=== PATIENT | female | born 1960 | race Two or more races ===

== ENCOUNTER 2025-08-28 20:29 | Inpatient (IN) | payer OTHER ==
[~2025-08-28] VITALS: Ht 157.5 cm; Wt 79.5 kg
[2025-08-28 20:58] VITALS: TEMP 97.9
--- NOTE | 2025-08-28 21:00 | ED.PDOC ---
HPI Comments 64-year-old female who came to ER via EMS for chest pains. Patient has a history of hypertension, diabetes, end-stage renal disease on dialysis every Wednesday. Has a history of pancreatic cancer currently on chemotherapy. Status post CABG and ureteral stents. States 3 hours prior to arrival, she developed diffuse chest pains, pressure, constant. Self-medicated with nitroglycerin offering temporary relief. Blood sugar on scene was 329 Chief Complaint: Chest Pain Time Seen by MD: 20:59 Reviewed Notes: Payroll Professional Notes Allergies: Coded Allergies: NO KNOWN ALLERGIES (Unverified , 08/28/25) Information Source: Patient, Emergency Med Personnel Mode of Arrival: EMS Severity: Moderate Timing: Hours Duration: Since onset Prehospital treatment: Accucheck, ASA, NTG Location: Chest (R), Chest (L) Past Medical History PAST MEDICAL HISTORY: Cancer (Pancreatic), DM, ESRD, HTN Surgical History (Other): Chemotherapy, dialysis Wednesday, ureteral stents [employer]PER[employer] History: Denies all [employer]PER[employer]OR Hx Family History Family History: Reviewed,noncontributory to illness Social History Smoker: Non-Smoker Alcohol: Denies ETOH Use Drugs: Denies Drug Use Lives In: Home Constitutional: denies: chills, diaphoresis, fatigue, fever, malaise, sweats, weakness, others EENTM: denies: blurred vision, double vision, ear bleeding, ear discharge, ear drainage, ear pain, ear ringing, eye pain, eye redness, hearing loss, mouth pain, mouth swelling, nasal discharge, nose bleeding, nose congestion, nose pain, photophobia, tearing, throat pain, throat swelling, voice changes, others Respiratory: denies: cough, hemoptysis, orthopnea, SOB at rest, shortness of breath, SOB with excertion, stridor, wheezing, others Cardiovascular: reports: chest pain; denies: dizzy spells, diaphoresis, Dyspnea on exertion, edema, irregular heart beat, left arm pain, lightheadedness, palpitations, PND, syncope, others Gastrointestinal: denies: abdomen distended, abdominal pain, blood streaked bowels, constipated, diarrhea, dysphagia, difficulty swallowing, hematemesis, melena, nausea, poor appetite, poor fluid intake, rectal bleeding, rectal pain, vomiting, others Genitourinary: denies: abnormal vagina bleeding, burning, dyspareunia, dysuria, flank pain, frequency, hematuria, incontinence, pain, , vagina discharge, urgency, others Neurological: denies: dizziness, fainting, headache, left sided numbness, left sided weakness, numbness, paresthesia, pre-existing deficit, right sided numbness, right sided weakness, seizure, speech problems, tingling, tremors, weakness, others Musculoskeletal: denies: back pain, gout, joint pain, joint swelling, muscle pain, muscle stiffness, neck pain, others Integumetry: denies: bruises, change in color, change in hair/nails, dryness, laceration, lesions, lumps, rash, wounds, others Allergic/Immunocompromised: denies: Difficulty Healing, Frequent Infections, Hives, Itching, others Hematologic/Lymphatic: denies: anemia, blood clots, easy bleeding, easy bruising, swollen glands, others Endocrine: denies: excessive hunger, excessive sweating, excessive thirst, excessive urination, flushing, intolerance to cold, intolerance to heat, unexplained weight gain, unexplained weight loss, others Psychiatric: denies: anxiety, bipolar disorder, depression, hopeless, panic disorder, schizophrenia, sleepless, suicidal, others Physical Exam General Appearance: No Apparent Distress, Normal HEENT: Normal ENT Inspection, Pharynx Normal, TMs Normal Neck: Full Range of Motion, Non-Tender, Normal, Normal Inspection Respiratory: Chest Non-Tender, Lungs Clear, No Accessory Muscle Use, No Respiratory Distress, Normal Breath Sounds Cardiovascular: No Edema, No JVD, No Murmur, No Gallop, Normal Peripheral Pulses, Regular Rate/Rhythm Breast Exam: Deferred Gastrointestinal: No Organomegaly, Non Tender, No Pulsatile Mass, Normal Bowel Sounds, Soft Genitalia: Deferred Pelvic: Deferred Rectal: Deferred Extremities: No calf tenderness, Normal capillary refill, Normal inspection, Normal range of motion, Non-tender, No pedal edema Musculoskeletal : Apperance: Normal Neurologic: Alert, junior administrative assistant II-XII nml as Tested, No Motor Deficits, Normal Affect, Normal Mood, No Sensory Deficits Cerebellar Function: Normal Reflexes: Normal Skin: Dry, Normal Color, Warm Lymphatic: No Adenopathy EKG EKG : Pulse Rate (adult): 90 Cardiac Rhythm: NSR Was a procedure done? Was a procedure done?: No CP Differential Dx Differential Diagnosis: Angina, Anxiety / Panic Attack, Electrolyte Disorder, Hypoxia Differential Diagnosis: Angina, Chest Wall Pain, Costochondritis, Esophageal reflux/spasm, Gastritis, Myocardial Infarction X-Ray, Labs, Meds, VS Vital Signs Date Time Temp Pulse Resp B/P (MAP) Pulse Ox O2 Delivery O2 Flow Rate FiO2 08/28/25 23:31 88 18 152/76 (101) 99 08/28/25 23:30 89 08/28/25 21:47 106 18 99 Room Air* 0 21 08/28/25 21:47 90 08/28/25 21:44 90 08/28/25 20:58 97.9 106 18 159/93 (115) 99 97.9 08/28/25 20:34 109 08/28/25 20:33 98.1 114 16 139/85 98 98.1 Lab Test 08/28/25 23:41 08/28/25 22:13 08/28/25 20:56 Range/Units Troponin I High Sensitivity Pending 80 *H 53 *H </=34 ng/L White Blood Count 6.5 4.4-10.8 10^3/uL Red Blood Count 2.74 L 4.0-5.20 10^6/uL Hemoglobin 7.2 L 12.2-16.2 g/dL Hematocrit 22.4 L 36.0-46.0 % Mean Corpuscular Volume 81.9 80.0-100.0 fL Mean Corpuscular Hemoglobin 26.5 L 28.0-32.0 pg Mean Corpuscular Hemoglobin Concent 32.3 32.0-36.0 g/dL Red Cell Distribution Width 19.7 H 11.8-14.3 % Platelet Count 292 140-450 10^3/uL Mean Platelet Volume 7.8 6.9-10.8 fL Neutrophils (%) (Auto) 80.5 H 37.0-80.0 % Lymphocytes (%) (Auto) 11.3 10.0-50.0 % Monocytes (%) (Auto) 5.2 0.0-12.0 % Eosinophils (%) (Auto) 2.0 0.0-7.0 % Basophils (%) (Auto) 1.0 0.0-2.0 % Neutrophils # (Auto) 5.3 1.6-8.6 10 ^3/uL Lymphocytes # (Auto) 0.7 0.4-5.4 10 ^3/uL Monocytes # (Auto) 0.3 0-1.3 10 ^3/uL Eosinophils # (Auto) 0.1 0-0.8 10 ^3/uL Basophils # (Auto) 0.1 0-0.2 10 ^3/uL Nucleated Red Blood Cells 0.0 % Sodium Level 138 136-145 mmol/L Potassium Level 4.3 3.5-5.1 mmol/L Chloride Level 102 98-107 mmol/L Carbon Dioxide Level 22 20-31 mmol/L Anion Gap 14 5-15 Blood Urea Nitrogen 21 9-23 mg/dL Creatinine 4.68 H 0.550-1.02 mg/dL Glomerular Filtration Rate Calc 10 >90 mL/min BUN/Creatinine Ratio 4.5 L 10.0-20.0 Serum Glucose 405 *H 74-106 mg/dL Calcium Level 7.5 L 8.7-10.4 mg/dL Total Bilirubin 0.9 0.2-1.0 mg/dL Aspartate Amino Transferase (AST) 55 H 13-40 U/L Alanine Aminotransferase (ALT) 30 7-40 U/L Alkaline Phosphatase 571 H 46-116 U/L B-Type Natriuretic Peptide 568.92 0-100 pg/mL Total Protein 5.5 L 5.7-8.2 g/dL Albumin 2.8 L 3.2-4.8 g/dL Current Medications Medications (Trade) Dose Ordered Sig/Henrik Route Start Time Stop Time Status Last Admin Insulin Human Regular (InsuLIN R) 5 units ONCE ONCE SC 08/28/25 22:00 08/28/25 22:01 DC 08/28/25 22:10 CHEST RADIOGRAPH Indication: chest pain Technique: Single frontal view of the chest was obtained Comparison: None FINDINGS: Lines and Tubes: Left IJ approach hemodialysis catheter terminating over the mid to distal SVC. Right IJ approach port-A-Cath terminating within the distal right IJ. Lungs: No focal consolidation. Diffuse interstitial prominence. Pleura: No effusion. No pneumothorax. Cardiomediastinal contours: Heart size is within normal limits with mild atherosclerotic calcification and uncoiling of the aorta. Bones: No acute osseous abnormality. Midline sternotomy wires surgical clips are noted consistent with prior history of CABG. IMPRESSION: Right IJ approach port-A-Cath terminating over the distal right IJ. Left IJ approach hemodialysis catheter terminating over the mid to distal SVC. Interstitial prominence bilateral lungs which may represent pulmonary vascular congestion / fibrotic changes with atypical pneumonia not excluded. Time of 1ST Reevaluation: 20:56 Reevaluation 1ST: Unchanged Patient Education/Counseling: Diagnosis, Treatment Family Education/Counseling: No Family Present SEPSIS Sepsis Screen Physician Orders Electrocardigram (08/28/25 20:34) Troponin-I Hs (08/28/25 23:34) Chest Xray 1 View (08/28/25 20:43) Vital Signs Date Time Temp Pulse Resp B/P (MAP) Pulse Ox O2 Delivery O2 Flow Rate FiO2 08/28/25 23:31 88 18 152/76 (101) 99 08/28/25 23:30 89 08/28/25 21:47 106 18 99 Room Air* 0 21 08/28/25 21:47 90 08/28/25 21:44 90 08/28/25 20:58 97.9 106 18 159/93 (115) 99 97.9 08/28/25 20:34 109 08/28/25 20:33 98.1 114 16 139/85 98 98.1 Laboratory Tests Test 08/28/25 20:56 White Blood Count 6.5 10^3/uL (4.4-10.8) Medications Medications Dose Ordered Sig/Henrik Route Start Time Stop Time Status Last Admin Dose Admin Insulin Human Regular 5 units ONCE ONCE SC 08/28/25 22:00 08/28/25 22:01 DC 08/28/25 22:10 Departure 1 Departure Time of Disposition: 00:03 Impression: Primary Impression: Acute coronary syndrome Additional Impressions: Type 2 diabetes mellitus with hyperglycemia Chronic kidney disease with end stage renal failure on dialysis Anemia of chronic disease Pancreatic cancer Disposition: ADMITTED INPATIENT Admit to: Tele Condition: Guarded Comments 64-year-old female with a history of pancreatic cancer receiving chemotherapy, type 2 diabetes and chronic renal failure on dialysis Wednesday now presents with the chest pain. Chest x-ray shows some fluid overload/CHF. On lab review patient is quite anemic with H&H of 7.2 and 22.4. Chronic renal failure with creatinine high at 4.68. Hyperglycemia 405. Troponin elevated at 53 and then became more elevated at 880 on the repeat. BNP is elevated at 569. Patient was given aspirin. Patient will need to be admitted for supportive care and further workup. Critical Care Note Critical Care Time?: Yes (35 min-critical care time only) Critical care comment: Chest pain Stability Stability form required: No Heart Score Heart Score: Heart Score Response (Comments) Value History Moderate Suspicious 1 EKG Repolarization Disturb 1 Age >65 2 Risk Factors >3 or Hx ASHD 2 Troponin 1-2 x's Normal limit 1 Total 7 I personally scribed for DIONNE BEAVER MD ([email or web address]) on 08/28/25 at 21:00. Electronically submitted by Matt Chapman ([email or web address]). I personally scribed for DIONNE BEAVER MD ([email or web address]) on 08/28/25 at 21:47. Electronically submitted by Matt Chapman ([email or web address]). DIONNE BEAVER MD Aug 28, 2025 21:00
--- NOTE | 2025-08-28 21:01 | DVH ---
CHEST RADIOGRAPH Indication: chest pain Technique: Single frontal view of the chest was obtained Comparison: None FINDINGS: Lines and Tubes: Left IJ approach hemodialysis catheter terminating over the mid to distal SVC. Right IJ approach port-A-Cath terminating within the distal right IJ. Lungs: No focal consolidation. Diffuse interstitial prominence. Pleura: No effusion. No pneumothorax. Cardiomediastinal contours: Heart size is within normal limits with mild atherosclerotic calcificatio n and uncoiling of the aorta. Bones: No acute osseous abnormality. Midline sternotomy wires surgical clips are noted consistent wit h prior history of CABG. IMPRESSION: Right IJ approach port-A-Cath terminating over the distal right IJ. Left IJ approach hemodialysis cat heter terminating over the mid to distal SVC. Interstitial prominence bilateral lungs which may represent pulmonary vascular congestion / fibrotic changes with atypical pneumonia not excluded.
[2025-08-28 21:18] LABS: Hematocrit 22.4 % (36.0-46.0); Hemoglobin 7.2 g/dL (12.2-16.2); Mean Corpuscular Hemoglobin 26.5 pg (28.0-32.0); Mean Corpuscular Volume 81.9 fL (80.0-100.0); Nucleated Red Blood Cells % 0.0 %
[2025-08-28 21:43] LABS: Alanine Aminotransferase 30 U/L (7-40); Anion Gap 14 (5-15); BUN/Creatinine Ratio 4.5 (10.0-20.0); Blood Urea Nitrogen 21 mg/dL (9-23); Carbon Dioxide 22 mmol/L (20-31); Chloride 102 mmol/L (98-107); Potassium 4.3 mmol/L (3.5-5.1); Sodium 138 mmol/L (136-145)
[2025-08-28 21:44] LABS: Bilirubin, Total 0.9 mg/dL (0.2-1.0)
[2025-08-28 21:47] VITALS: PULSE 106; RESP 18; O2SAT 99
[2025-08-28 21:49] LABS: Albumin 2.8 g/dL (3.2-4.8); Alkaline Phosphatase 571 U/L (46-116); Calcium 7.5 mg/dL (8.7-10.4); Total Protein 5.5 g/dL (5.7-8.2)
[2025-08-28 21:51] LABS: Glucose 405 mg/dL (74-106)
[2025-08-28] MEDS: InsuLIN REG 1unit/0.01ml Soln (100units/ml) SC ONE (22:10)
[2025-08-29] MEDS ORDERED: ACETAMINOPHEN 325 MG TAB PO PRN (02:30)
[2025-08-29] MEDS ORDERED: NITROGLYCERIN 0.4 MG SL TAB SL PRN (02:30)
[2025-08-29] MEDS ORDERED: ONDANSETRON HCL 4 MG/2 ML VIAL IV PRN (02:30)
[2025-08-29] MEDS ORDERED: MORPHINE SULFATE INJ 2 MG/ml SYRG IV PRN ×2 (02:30)
[2025-08-29] MEDS: DEXTROSE (25%) 10 ML SYRG IV ONE (02:44)
--- NOTE | 2025-08-29 03:27 | DVHHPRES ---
History of Present Illness Resident Creating Document: MARIO GONSALVES History of Present Illness Damari Hamilton this is a 64-year-old female patient who presents to ED with chief of oppressive right shoulder to left shoulder chest pain intensity 10/10 which lasted approximately 1 hour and was relieved after 2nd nitroglycerin, pain started on Wednesday while she was in Functional Class IV, associated with nausea, then presented new episode after EMS arrived, prompting her visit to the ED. patient reports previously documented angina, these symptoms were similar of when she had RI. denies any other associated symptoms, including dyspnea, syncope, palpitation. Patient does not report any obvious bleeding from GI, or other sources. Past medical history: Hypertension, diabetes, coronary artery disease status post CABG with three grafts, 2021 PCI was recently discontinued from dap and placed on apixaban, recent diagnosis of pancreatic cancer in 04/2025 planning on starting chemotherapy, but was delayed due to status post bile duct stent placement on 05/2025 which was later complicated by sepsis with secondary to cholangitis in 07/2025 (admission was in [facility]) requiring hemodialy sis session 3 times a week due to ESRD (Wednesday, Wednesday and Wednesday), normocytic anemia requiring three transfusions in June/2025, DVT on right upper arm. Surgical history: 2020 CABG, 2021 PCI, 05/2025 bile duct stent placement, 07/2025 new bile stent placement, Port-A-Cath, tunneled catheter. Family history: Noncontributory Social history: Lives in [place] alone (next of kin is sister). Denies current tobacco, alcohol and other drug abuse Allergies: Denies Home medication: On apixaban, metoprolol and insulin. In recent admission during sepsis secondary to cholangitis in [facility], atorvastatin, Brilinta, aspirin, Jardiance and metformin were all discontinued. Patient seen and examined at bedside. Currently has no new complaints, chest pain has resolved after nitroglycerin. Patient is kept NPO due to suspected GI bleed and also to evaluate need of invasive treatment at this time. She initially was admitted with hyperglycemia, and currently has hypoglycemia. Questionable sepsis, obtain cultures, but patient currently refuses IV antibiotic due to fear of worsening kidney function. Have explained that her kidney only function with hemodialysis at this point and that sepsis can potentially be fatal, patient understands consequences but still prefers to not receive IV antibiotic. Past Medical History Per HPI Past Surgical History Per HPI Family History Per HPI Past Social History Per HPI Review of Systems Review of Systems Per HPI Allergies: Coded Allergies: NO KNOWN ALLERGIES (Unverified , 08/28/25) Exam Vital Signs Vital Signs Date Time Temp Pulse Resp B/P (MAP) Pulse Ox O2 Delivery O2 Flow Rate FiO2 08/29/25 01:38 76 16 134/68 (90) 96 08/28/25 21:47 Room Air* 0 21 08/28/25 20:58 97.9 97.9 Exam Patient lying in bed, in no acute distress General: Lucid, afebrile, mucosae are moist, pale conjunctivae and skin Cardiovascular: Normal S1 and S2. No murmurs, gallops or rubs. Port-A-Cath entrance in right subclavian area with mild erythema and tunneled catheter in left subclavian area Respiratory: Normal ventilation mechanics. Clear lung sounds on auscultation Abdomen: Soft, nontender, no organomegaly, normal bowel sounds MSK/skin: Mobilizes 4 limbs. Skin is dry and warm. Bilateral lower limb pitting edema right greater than left. Bilateral upper limb swelling, no pain Neurological: Oriented in 3 spheres. No motor no sensitive deficits. Pupils are isocoric and reactive Labs/Xrays Labs Test 08/28/25 23:41 08/28/25 20:56 Range/Units Troponin I High Sensitivity 171 *H </=34 ng/L White Blood Count 6.5 4.4-10.8 10^3/uL Red Blood Count 2.74 L 4.0-5.20 10^6/uL Hemoglobin 7.2 L 12.2-16.2 g/dL Hematocrit 22.4 L 36.0-46.0 % Mean Corpuscular Volume 81.9 80.0-100.0 fL Mean Corpuscular Hemoglobin 26.5 L 28.0-32.0 pg Mean Corpuscular Hemoglobin Concent 32.3 32.0-36.0 g/dL Red Cell Distribution Width 19.7 H 11.8-14.3 % Platelet Count 292 140-450 10^3/uL Mean Platelet Volume 7.8 6.9-10.8 fL Neutrophils (%) (Auto) 80.5 H 37.0-80.0 % Lymphocytes (%) (Auto) 11.3 10.0-50.0 % Monocytes (%) (Auto) 5.2 0.0-12.0 % Eosinophils (%) (Auto) 2.0 0.0-7.0 % Basophils (%) (Auto) 1.0 0.0-2.0 % Neutrophils # (Auto) 5.3 1.6-8.6 10 ^3/uL Lymphocytes # (Auto) 0.7 0.4-5.4 10 ^3/uL Monocytes # (Auto) 0.3 0-1.3 10 ^3/uL Eosinophils # (Auto) 0.1 0-0.8 10 ^3/uL Basophils # (Auto) 0.1 0-0.2 10 ^3/uL Nucleated Red Blood Cells 0.0 % Sodium Level 138 136-145 mmol/L Potassium Level 4.3 3.5-5.1 mmol/L Chloride Level 102 98-107 mmol/L Carbon Dioxide Level 22 20-31 mmol/L Anion Gap 14 5-15 Blood Urea Nitrogen 21 9-23 mg/dL Creatinine 4.68 H 0.550-1.02 mg/dL Glomerular Filtration Rate Calc 10 >90 mL/min BUN/Creatinine Ratio 4.5 L 10.0-20.0 Serum Glucose 405 *H 74-106 mg/dL Calcium Level 7.5 L 8.7-10.4 mg/dL Total Bilirubin 0.9 0.2-1.0 mg/dL Aspartate Amino Transferase (AST) 55 H 13-40 U/L Alanine Aminotransferase (ALT) 30 7-40 U/L Alkaline Phosphatase 571 H 46-116 U/L B-Type Natriuretic Peptide 568.92 0-100 pg/mL Total Protein 5.5 L 5.7-8.2 g/dL Albumin 2.8 L 3.2-4.8 g/dL SEPSIS Sepsis Screen Date sepsis recognized/suspect: Aug 28, 2025 Time Sepsis recognized/suspect: 2032 Recent Procedure: No On Antibiotic Therapy: No Respiratory Rate >20: No Heart Rate >90: Yes Temp<36 C (96.8 F) or >38.3 C: No SBP <90 or MAP <65 mmHG: No New Acute Mental Status Change: No Is the patient on CPAP, BIPAP,: No Physician Orders Electrocardigram (08/28/25 20:34) Chest Xray 1 View (08/28/25 20:43) Admit (08/29/25 02:19) Code Status (08/29/25 02:19) Vital Signs .PER UNIT PROTOCOL (08/29/25 02:19) Review Orders With Adm. (08/29/25 02:19) Npo (Nothing By Mouth) Diet (08/29/25 Breakfast) Acetaminophen Tablet (Tylenol Tablet) (08/29/25 02:30) Notify Md Of Changes From Base (08/29/25 02:19) Advance Directive (08/29/25 02:19) Echo 2d Mode Cardiac Dop (08/29/25 02:19) Patient Condition (08/29/25:) Allergies (08/29/25:) Ondansetron Hcl (Zofran) (08/29/25 02:30) Morphine Sulfate Injection (08/29/25 02:30) Nitroglycerin Sublingual (Ntrostat Subli (08/29/25 02:30) Morphine Sulfate Injection (08/29/25 02:30) Oxygen By Nasal Cannula (08/29/25 02:19) Stat Ekg For Chest Pain (08/29/25 02:19) Notify Md Of Changes From Base (08/29/25 02:19) Home Management Supervisor For 24 Hours (08/29/25 02:19) Emergency Dysrhythmia Protocol (08/29/25 02:19) Rhythm Strips Once Every Shift (08/29/25 02:19) Aspirin Tablet (08/29/25 10:00) Atorvastatin (Lipitor) (08/29/25 22:00) Bilat Lower Dvt (08/29/25 03:22) Bi Lat Upper Dvt (08/29/25 03:22) Vitamin D, 25-Hydroxy (08/29/25 03:22) Thyroid Stimulating Hormone (08/29/25 03:22) Urinalysis (08/29/25 03:22) Vitamin B12 (08/29/25 03:22) PTPTT (08/29/25 03:22) Phosphorus (08/29/25 03:22) Magnesium (08/29/25 03:22) Lipid Panel (08/29/25 03:22) Lipase (08/29/25 03:22) Lactic Acid W/ Reflex Order (08/29/25 03:22) Hemoglobin A1c (08/29/25 03:22) Drug Screen (08/29/25 03:22) Comprehensive Metabolic Panel (08/29/25 03:22) Complete Blood Count (08/29/25 03:22) Blood Culture (08/29/25 03:22) Urine Bacterial Culture (08/29/25 03:22) Respiratory Culture W/ Gs (08/29/25 03:22) Troponin-I Hs (08/29/25 03:26) Vital Signs Date Time Temp Pulse Resp B/P (MAP) Pulse Ox O2 Delivery O2 Flow Rate FiO2 08/29/25 01:38 76 16 134/68 (90) 96 08/28/25 23:31 88 18 152/76 (101) 99 08/28/25 23:30 89 08/28/25 21:47 106 18 99 Room Air* 0 21 08/28/25 21:47 90 08/28/25 21:44 90 08/28/25 20:58 97.9 106 18 159/93 (115) 99 97.9 08/28/25 20:34 109 08/28/25 20:33 98.1 114 16 139/85 98 98.1 Laboratory Tests Test 08/28/25 20:56 White Blood Count 6.5 10^3/uL (4.4-10.8) Medications Medications Dose Ordered Sig/Henrik Route Start Time Stop Time Status Last Admin Dose Admin Insulin Human Regular 5 units ONCE ONCE SC 08/28/25 22:00 08/28/25 22:01 DC 08/28/25 22:10 5 UNITS Assessment/Plan Assessment/Plan NSTEMI probable type 2 Sepsis likely secondary to tunneled hemodialysis catheter Probable GI bleed Bilateral upper extremity DVT Normocytic/microcytic anemia Patient currently on heparin drip due to bilateral upper limb DVT. She has high-risk of bleeding. EKG shows sinus rhythm with no ST elevation, negative T- waves in higher lateral leads. Completed bilateral upper limb extremity ultrasound which showed bilateral DVT in upper limbs. Bilateral lower limbs did not show any DVT Patient has high risk of presenting PE. If deemed necessary, consider angio CT of chest Patient is on pantoprazole drip Ordered stool occult blood in rest of anemia workup Consider consulted Cardiology. She is not a good candidate for stent placement at this time due to pancreatic cancer and high bleeding risk. Highly suspect sepsis due to tachycardia, altered glucose levels and neut rophilia. Currently patient is NPO due to suspected GI bleed and for further evaluation. Ordered pancultures (blood, urine, sputum) Ordered IV antibiotic, but patient refused to receive it because she wants to protect her kidneys. Have explained that her kidneys already dependent on hemodialysis, antibiotic we will be washed out with hemodialysis. Patient refuses and accepts the risk of not getting antibiotics, including . Pancreatic cancer status post bile duct stent placement x2 Patient planning on completing chemotherapy next month. Recently had prolonged hospitalization (approximately one month) due to severe sepsis due to cholangitis. Coronary artery disease status post CABG with three grafts and PCI Patient was on apixaban, currently he is on heparin drip. End-stage renal disease on hemodialysis session 3 times a week Consulted nephrology Hypertension Diabetes Discontinued antihypertensive medication at this time due to probable GI bleed Currently patient is on insulin sliding scale and requires dextrose drip due to persistent hypoglycemia Goals of care discussed with patient for over 18 minutes: Full code status Discussed plan with Dr. Whatley, patient and nurses: Patient is currently on telemetry status, is kept NPO due to probable GI bleed, placed on pantoprazole drip, patient does present stable hemoglobin (7.2 x 2), presents bilateral upper limb DVT, started heparin drip to avoid PE, patient has high bleeding risk. Indicated IV antibiotic, but patient refused to protect her kidney function (educated the patient on her current need of hemodialysis and that antibiotic we will be removed which each session, and that antibiotics can prevent fatalities from for sepsis, patient is still refuses antibiotic takes full responsibility of her actions). Patient has poor prognosis. Patient is unstable for transfer to [place] Plan discussed with: Patient, Other (Nurses) My Orders Orders - MARIO GONSALVES RESIDENT Procedure Category Date Status Time Admit ADMIT 08/29/25 Transmitted 02:19 Code Status CODE 08/29/25 Transmitted 02:19 Vital Signs BENJAMIN 08/29/25 In Process 02:19 Review Orders With BENJAMIN 08/29/25 In Process Adm. 02:19 Npo (Nothing By DIET 08/29/25 Transmitted Mouth) Diet Breakfast Acetaminophen Tablet PHA 08/29/25 In Process (Tylenol Tablet) 02:30 Notify Of Changes BENJAMIN 08/29/25 In Process From Base 02:19 Advance Directive BENJAMIN 08/29/25 In Process 02:19 Echo 2d Mode Cardiac US 08/29/25 Logged DOP 02:19 Patient Condition ORDERS 08/29/25 Transmitted 02:19 Allergies BENJAMIN 08/29/25 In Process 02:19 Ondansetron Hcl PHA 08/29/25 In Process (Zofran) 02:30 Morphine Sulfate PHA 08/29/25 In Process Injection 02:30 Nitroglycerin PHA 08/29/25 In Process Sublingual (Ntrostat 02:30 Morphine Sulfate PHA 08/29/25 In Process Injection 02:30 Oxygen By Nasal RT 08/29/25 Transmitted Cannula 02:19 Stat Ekg For Chest BENJAMIN 08/29/25 In Process Pain 02:19 Notify Of Changes BENJAMIN 08/29/25 In Process From Base 02:19 Home Management Supervisor For [facility] 08/29/25 In Process 24 Hours 02:19 Emergency Dysrhythmia BENJAMIN 08/29/25 In Process Protocol 02:19 Rhythm Strips Once BENJAMIN 08/29/25 In Process Every Shift 02:19 Aspirin Tablet PHA 08/29/25 In Process 10:00 Atorvastatin (Lipitor) PHA 08/29/25 In Process 22:00 Bilat Lower Dvt US 08/29/25 Transmitted 03:22 Bi Lat Upper Dvt US 08/29/25 Transmitted 03:22 Vitamin D, 25-Hydroxy LAB 08/29/25 Transmitted 03:22 Thyroid Stimulating LAB 08/29/25 Transmitted Hormone 03:22 Urinalysis LAB 08/29/25 Verified 03:22 Vitamin B12 LAB 08/29/25 Verified 03:22 PTPTT LAB 08/29/25 Verified 03:22 Phosphorus LAB 08/29/25 Verified 03:22 Magnesium LAB 08/29/25 Verified 03:22 Lipid Panel LAB 08/29/25 Verified 03:22 Lipase LAB 08/29/25 Verified 03:22 Lactic Acid W/ Reflex LAB 08/29/25 Verified Order 03:22 Hemoglobin A1c LAB 08/29/25 Verified 03:22 Drug Screen LAB 08/29/25 Verified 03:22 Comprehensive LAB 08/29/25 Verified Metabolic Panel 03:22 Complete Blood Count LAB 08/29/25 Verified 03:22 Blood Culture MIESHA 08/29/25 Verified 03:22 Urine Bacterial MIESHA 08/29/25 Verified Culture 03:22 Respiratory Culture MIESHA 08/29/25 Verified W/ Gs 03:22 Troponin-I Hs LAB 08/29/25 Verified 03:26 Date of Service: Aug 29, 2025 Billing Provider: BRITTANY MEMBRENO MD Common Visit Codes: [id number] INP/OBS CARE (HIGH) Secondary Visit Codes: [id number] CARE PLAN 30 MINUTES MARIO GONSALVES RESIDENT Aug 29, 2025 03:26
[2025-08-29] MEDS ORDERED: DEXTROSE 50% SYRINGE 50 ML IV ONE (03:59)
[2025-08-29] MEDS: DEXTROSE (50%) 50ML SYRG IV ONE (04:00)
[2025-08-29 04:12] LABS: INR 1.13 (0.9-1.15); Partial Thromboplastin Time 32.3 SEC (24.5-34.5); Prothrombin Time 11.8 sec (9.3-11.8)
[2025-08-29 05:00] VITALS: BP 105/67; PULSE 84; RESP 18; O2SAT 95
[2025-08-29] MEDS ORDERED: VANCOMYCIN PER PHARMACY 0 MG IV SCH (05:00)
[2025-08-29] MEDS ORDERED: VANCOMYCIN 1GM/250ML IV ONE (05:15)
[2025-08-29] MEDS ORDERED: InsuLIN REG 1unit/0.01ml Soln (100units/ml) SC SCH (06:00)
[2025-08-29] MEDS ORDERED: ACCU-CHEK COMFORT CURVE STRIP VI SCH (06:00)
[2025-08-29] MEDS ORDERED: MEROPENEM 500MG IVPB 50 ML IV SCH (06:00)
[2025-08-29] MEDS: DEXTROSE (50%) 50ML SYRG IV PRN (06:40)
[2025-08-29 08:07] VITALS: PULSE 82
[2025-08-29 08:12] LABS: Hematocrit 22.2 % (36.0-46.0); Hemoglobin 7.2 g/dL (12.2-16.2); Mean Corpuscular Volume 79.9 fL (80.0-100.0); Nucleated Red Blood Cells % 0.0 %
[2025-08-29 08:14] LABS: Mean Corpuscular Hemoglobin 26.1 pg (28.0-32.0)
[2025-08-29 08:36] LABS: Alanine Aminotransferase 28 U/L (7-40); Anion Gap 11 (5-15); BUN/Creatinine Ratio 5.0 (10.0-20.0); Bilirubin, Total 0.8 mg/dL (0.2-1.0); Carbon Dioxide 26 mmol/L (20-31); Chloride 104 mmol/L (98-107); Cholesterol 113 mg/dL (< 200); Magnesium 2.1 mg/dL (1.6-2.6); Potassium 4.2 mmol/L (3.5-5.1); Sodium 141 mmol/L (136-145); Triglycerides 75 mg/dL (< 150)
[2025-08-29 08:37] LABS: Albumin 2.9 g/dL (3.2-4.8); Alkaline Phosphatase 548 U/L (46-116); Blood Urea Nitrogen 25 mg/dL (9-23); Calcium 7.6 mg/dL (8.7-10.4); Glucose 73 mg/dL (74-106); HDL Cholesterol 38 mg/dL (40-59); Total Protein 5.6 g/dL (5.7-8.2)
[2025-08-29 08:50] LABS: Free T4 (Free Thyroxine) 0.86 ng/dL (0.89-1.76)
--- NOTE | 2025-08-29 08:52 | DVH ---
Bilateral lower extremity venous duplex Clinical History: Extremity swelling, Hx pancreatic CA Comparison: US BI LAT UPPER DVT on DOS: 08/29/25 Findings: Duplex Doppler evaluation of the deep venous systems of both lower extremities from the common femora l veins to the popliteal veins including color Doppler and spectral/pulsed waveform analysis was perf ormed. RIGHT SIDE: The common femoral vein demonstrates appropriate compressibility and waveform variability. There is compressibility/patency of the great saphenous vein at the proximal thigh. The femoral vein demonstrates appropriate compressibility and waveform variability. The deep femoral vein demonstrates appropriate compressibility and waveform variability. The popliteal vein demonstrates appropriate compressibility and waveform variability. There is normal compressibility at the tibioperoneal trunk. LEFT SIDE: The common femoral vein demonstrates appropriate compressibility and waveform variability. There is compressibility/patency of the great saphenous vein at the proximal thigh. The femoral vein demonstrates appropriate compressibility and waveform variability. The deep femoral vein demonstrates appropriate compressibility and waveform variability. The popliteal vein demonstrates appropriate compressibility and waveform variability. There is normal compressibility at the tibioperoneal trunk. IMPRESSION: No right or left femoropopliteal venous thrombosis. If clinical concern/symptoms persist or worsen, short-interval follow-up study is suggested. END IMPRESSION:
--- NOTE | 2025-08-29 09:03 | DVH ---
INDICATION: Pancreatic CA s/p stent placement, recent cholangitis TECHNIQUE: Multiple real-time sonographic images of the abdomen were obtained. COMPARISON: None FINDINGS: The liver is homogenous in echogenicity. The liver measures 16cm. No intrahepatic biliary ductal dilatation is noted. The gallbladder wall measures 0.2 cm and is unremarkable. No gallstones or sludge is seen. The commo n duct measures 1.2 cm and is unremarkable. No pericholecystic fluid is noted. The right kidney measures 13 cm. No hydronephrosis. The left kidney measures 12cm. No hydronephrosi s. Right renal stenting noted. The spleen measures 11cm, within normal limits. The echogenicity is within normal limits. 4 x 4 x 4 cm hypoechoic pancreatic mass. The visualized portions of the IVC and aorta are grossly unremarkable. IMPRESSION: There is air visualized within the bile ducts, common bile duct, and left hepatic lobe, likely from c ommon bile duct stent. Pancreatic head mass.
[2025-08-29 09:14] LABS: Lipase 27 U/L (12-53)
[2025-08-29] MEDS ORDERED: DEXTROSE 10% 1,000 ML IV ONE (09:15)
--- NOTE | 2025-08-29 09:35 | DVH ---
Bilateral Upper Extremity Venous Duplex Date: 08/29/2025 07:45 AM Clinical History: Extremity swelling, Hx pancreatic cancer Comparison: US BILAT LOWER DVT on DOS: 08/29/25 Findings: Duplex Doppler evaluation of the venous systems of the right and left lower neck and upper extremitie s including color Doppler and spectral/pulsed waveform analysis was performed. RIGHT SIDE: The internal jugular vein demonstrates appropriate compressibility and waveform variability. The subclavian vein is patent on color Doppler evaluation without intraluminal thrombus and demonstra shawn waveform variability. The visualized portion of the brachiocephalic vein is patent on color Doppler evaluation without intr aluminal thrombus and demonstrates waveform variability. The axillary vein demonstrates appropriate compressibility and waveform variability. The brachial veins demonstrate appropriate compressibility and patency on Doppler evaluation. The basilic vein demonstrates appropriate compressibility and patency on Doppler evaluation. The cephalic vein demonstrates is not visualized. LEFT SIDE: Loss of compressibility of the left IJ vein. The visualized portion of the brachiocephalic vein is patent on color Doppler evaluation without intr aluminal thrombus and demonstrates waveform variability. The axillary vein demonstrates appropriate compressibility and waveform variability. The brachial veins demonstrate appropriate compressibility and patency on Doppler evaluation. The basilic vein demonstrates appropriate compressibility and patency on Doppler evaluation. The cephalic vein is not visualized. IMPRESSION: Bilateral upper extremity DVT END IMPRESSION: If clinical concern/symptoms persist or worsen, short-interval follow-up study is suggested.
[2025-08-29] MEDS ORDERED: HEPARIN DRIP/D5W 100UNITS/ML 250 ML IV SCH (10:00)
[2025-08-29] MEDS ORDERED: PANTOPRAZOLE 40mg/50ML NS AE 50 ML IV SCH (10:00)
--- NOTE | 2025-08-29 11:36 | DVHPN2 ---
Progress Note Date Seen: Aug 29, 2025 Medical Necessity Reason Pt with a Central, PICC or Fol: No Subjective Patient reports: No new complaints Review of Systems: HEENT:Normal, CVS:Normal, RESPIRATORY:Normal, GI:Normal, :Normal, MSK:Normal, NEURO:Normal Objective vital signs Vital Sign Date Time Temp Pulse Resp B/P (MAP) Pulse Ox O2 Delivery O2 Flow Rate FiO2 08/29/25 08:07 82 08/29/25 05:00 18 105/67 (80) 95 08/28/25 21:47 Room Air* 0 21 08/28/25 20:58 97.9 97.9 medications Current Medications Medications Dose Ordered Sig/Henrik Route Start Time Stop Time Status Last Admin Dose Admin Acetaminophen 650 mg Q6HP PRN PO 08/29/25 02:30 Ondansetron HCl 4 mg Q4HP PRN IV 08/29/25 02:30 Morphine Sulfate 2 mg Q4HPRN PRN IV 08/29/25 02:30 Nitroglycerin 0.4 mg Q5MINP PRN SL 08/29/25 02:30 Morphine Sulfate 2 mg Q30M PRN IV 08/29/25 02:30 Atorvastatin Calcium 40 mg HS PO 08/29/25 22:00 Diagnostic Test (Pha) 1 strip Q6HR 08/29/25 06:00 Insulin Human Regular Q6HR SC 08/29/25 06:00 Dextrose 50 ml UD PRN IV 08/29/25 04:45 08/29/25 09:36 50 ML Vancomycin HCl 0 ml @ 0 mls/hr UD IV 08/29/25 05:00 Meropenem 50 ml @ 17 mls/hr Q24H IV 08/29/25 06:00 Heparin Sodium/ Dextrose 250 ml @ 14.31 mls/ hr [id number] IV 08/29/25 10:00 Hold Pantoprazole Sodium 50 ml @ 10 mls/hr Q5H IV 08/29/25 10:00 Examination: GENERAL:Normal, HEENT:Normal, NECK:Normal, LUNGS:Normal, CVS:Normal, ABDOMEN:Normal, MSK:Normal, SKIN:Normal, NEURO:Normal, :Normal laboratory and microbiology Laboratory Tests 08/29/25 07:40 Test 08/29/25 07:40 Range/Units Serum Glucose 73 L 74-106 mg/dL Problem List/Assessment/Plan Problem List/Assessment/Plan #1 chest pain s/p cabg #2 bilateral upper extremity dvt #3 anemia #4 pancreatic cancer s/p biliary stent #5 obesity #6 esrd on dialysis advance care planning -full code-time spent 18 mins wishes to leave AMA- explained risks Plan discussed with: Patient Date of Service: Aug 29, 2025 Billing Provider: MIRIAN LORENZO MD Common Visit Codes: [id number] INP/OBS CARE(HIGH) Secondary Visit Codes: [id number] CARE PLAN 30 MINUTES MIRIAN LORENZO MD Aug 29, 2025 11:36
--- NOTE | 2025-08-29 11:47 | DVHDS ---
DATE OF DISCHARGE: 08/29/2025 DATE PATIENT LEFT AGAINST MEDICAL ADVICE: 08/29/2025. HISTORY OF PRESENT ILLNESS: The patient is a 64-year-old lady who was admitted with complaints of left-sided chest pain and has a history of coronary artery disease status post CABG, diabetes, hypertension, recent pancreatic cancer diagnosis and end-stage renal disease, on hemodialysis. HOSPITAL COURSE: The patient had Doppler of extremities that showed bilateral upper extremity DVT. The patient had abdominal ultrasound that showed a pancreatic head mass. The patient was anemic with a hemoglobin of 7.2. Creatinine was 4.96, troponin was 558. She was hypoglycemic with a sugar of 42. The patient at this time wishes to leave against medical advice. She has been explained the risks of her decision. FINAL DIAGNOSES: Therefore: * Bilateral upper extremity DVT. * Non-STEMI. * Coronary artery disease status post CABG. * Hypoglycemia. * Diabetes mellitus. * Hypertension. * Pancreatic cancer. * End-stage renal disease, on hemodialysis. * Anemia. * Noncompliance. MD VALERIE Cunningham/GORGE TID: [id number] RECEIPT: [id number]
[2025-08-29] MEDS ORDERED: ATORVASTATIN 20 MG TAB PO SCH (22:00)
== END 2025-08-29 12:30 | disposition left against medical advice (07) | DRG 280 ==
LOC: ER 20:29 → EDBD 20:29 → OVERFLOW 08-29 02:19 → ER 08-29 02:25
PROVIDERS: ADMIT Internal Medicine; ATTEND Internal Medicine
DX: I21.4 Non-ST elevation (NSTEMI) myocardial infarction (principal); N18.6 End stage renal disease; I82.623 Acute embolism and thrombosis of deep veins of upper extremity, bilateral; I12.0 Hypertensive chronic kidney disease with stage 5 chronic kidney disease or end stage renal disease; Z53.29 Procedure and treatment not carried out because of patient's decision for other reasons; E11.65 Type 2 diabetes mellitus with hyperglycemia; E11.649 Type 2 diabetes mellitus with hypoglycemia without coma; E11.22 Type 2 diabetes mellitus with diabetic chronic kidney disease; D63.8 Anemia in other chronic diseases classified elsewhere; E66.9 Obesity, unspecified; I25.10 Atherosclerotic heart disease of native coronary artery without angina pectoris; Z95.1 Presence of aortocoronary bypass graft; Z99.2 Dependence on renal dialysis; Z85.07 Personal history of malignant neoplasm of pancreas; Z91.199 Patient's noncompliance with other medical treatment and regimen due to unspecified reason
CPT/HCPCS: 36415; 71045; 76700; 80053; 80061; 82306; 82607; 82962; 83036; 83605; 83690; 83735; 83880; 84100; 84439; 84443; 84480; 84484; 85025; 85610; 85730; 87040; 93970; 96372; 99291; G0378; J1642; J1815